=== PATIENT | female | born 1950 | race Caucasian/White ===

== ENCOUNTER 2020-04-07 12:46 | Inpatient (IN) | payer BC, OTHER, SELFPAY ==
[~2020-04-07] VITALS: Ht 157.5 cm; Wt 83.0 kg
[2020-04-07 14:28] VITALS: Ht 157.5 cm; Wt 83.0 kg
[2020-04-07 15:19] LABS: BASOPHIL % 0.5 % (0.2-1.3); PLATELET COUNT 378 x10^3mcL (179-408); RED CELL DISTRIBUTION WIDTH 13.1 % (12.3-17.7)
[2020-04-07 15:23] LABS: CALCIUM 9.6 mg/dL (8.5-10.1); CARBON DIOXIDE 25.4 mmol/L (21-32); POTASSIUM SERUM 3.9 mmol/L (3.5-5.1)
[2020-04-07 15:28] LABS: ALBUMIN 3.8 g/dL (3.4-5.0); BILIRUBIN TOTAL 0.9 mg/dL (0.20-1.00); C REACTIVE PROTEIN 3.3 mg/dL (<=0.9); TOTAL PROTEIN, SERUM 7.8 g/dL (6.4-8.2)
[2020-04-07 17:20] LABS: microscopic required? NO
[2020-04-07 17:34] LABS: urine erythrocyte NEGATIVE (NEGATIVE)
[2020-04-07] MEDS ORDERED: JANUVIA100 M1 PO (18:03)
[2020-04-07] MEDS ORDERED: TIROSINT75 MC1 PO (18:05)
[2020-04-07] MEDS ORDERED: LIPOFEN150 MG (18:05)
[2020-04-07] MEDS ORDERED: JARDIANCE10 MG PO (18:05)
[2020-04-07] MEDS ORDERED: SIMVASTATIN5 M2 (18:06)
[2020-04-07] MEDS ORDERED: GLIPIZIDE XL10 M1 PO (18:06)
[2020-04-07] MEDS ORDERED: VALSARTAN320 MG PO (18:07)
[2020-04-07] MEDS ORDERED: FORTAMET1000 MG PO (18:07)
[2020-04-07 18:25] VITALS: BP 110/53
[2020-04-09 04:50] VITALS: BP 145/80
[2020-04-09 05:18] VITALS: BP 145/80
[2020-04-09 09:18] LABS: BASOPHIL % 0.4 % (0.2-1.3); RED CELL DISTRIBUTION WIDTH 12.6 % (12.3-17.7)
[2020-04-09 09:51] LABS: CALCIUM 9.7 mg/dL (8.5-10.1); CARBON DIOXIDE 29.5 mmol/L (21-32); CHLORIDE SERUM 104 mmol/L (98-107); CREATININE SERUM 0.7 mg/dL (0.6-1.0); GFR1 > 60 mL/min; GLUCOSE SERUM 130 mg/dL (74-106); POTASSIUM SERUM 3.6 mmol/L (3.5-5.1); SODIUM SERUM 143 mmol/L (136-145)
[2020-04-09 09:55] LABS: BILIRUBIN DIRECT 0.14 mg/dL (0.0-0.2); BILIRUBIN TOTAL 0.6 mg/dL (0.20-1.00)
[2020-04-09 09:58] LABS: ALBUMIN 3.2 g/dL (3.4-5.0)
[2020-04-09 09:59] VITALS: BP 116/67
[2020-04-09 10:50] LABS: PLATELET COUNT 422 x10^3mcL (179-408)
[2020-04-09 12:03] VITALS: BP 117/54
[2020-04-09 16:42] VITALS: BP 143/84
[2020-04-09 20:32] VITALS: BP 141/83
[2020-04-10 05:09] VITALS: BP 138/80
[2020-04-10 08:03] LABS: CALCIUM 8.9 mg/dL (8.5-10.1); CARBON DIOXIDE 28.4 mmol/L (21-32); CHLORIDE SERUM 107 mmol/L (98-107); CREATININE SERUM 0.7 mg/dL (0.6-1.0); GFR1 > 60 mL/min; GLUCOSE SERUM 81 mg/dL (74-106); POTASSIUM SERUM 3.7 mmol/L (3.5-5.1); SODIUM SERUM 144 mmol/L (136-145)
[2020-04-10 08:17] VITALS: BP 123/78
[2020-04-10 08:37] LABS: BILIRUBIN DIRECT 0.15 mg/dL (0.0-0.2); BILIRUBIN TOTAL 0.63 mg/dL (0.20-1.00); TOTAL PROTEIN, SERUM 6.5 g/dL (6.4-8.2)
[2020-04-10 12:00] VITALS: BP 117/72
[2020-04-10 16:10] VITALS: BP 124/63
[2020-04-10 16:52] LABS: BASOPHIL % 0.5 % (0.2-1.3); RED CELL DISTRIBUTION WIDTH 13.1 % (12.3-17.7)
[2020-04-10 17:03] LABS: PLATELET COUNT 423 x10^3mcL (179-408)
[2020-04-10 21:48] VITALS: BP 116/71
[2020-04-11 06:05] VITALS: BP 134/75
[2020-04-11 07:15] LABS: BASOPHIL % 0.3 % (0.2-1.3); RED CELL DISTRIBUTION WIDTH 12.7 % (12.3-17.7)
[2020-04-11 07:20] LABS: CALCIUM 9.2 mg/dL (8.5-10.1); CARBON DIOXIDE 27.2 mmol/L (21-32); CHLORIDE SERUM 106 mmol/L (98-107); CREATININE SERUM 0.7 mg/dL (0.6-1.0); GFR1 > 60 mL/min; GLUCOSE SERUM 85 mg/dL (74-106); POTASSIUM SERUM 3.5 mmol/L (3.5-5.1); SODIUM SERUM 143 mmol/L (136-145)
[2020-04-11 07:42] LABS: BILIRUBIN DIRECT 0.14 mg/dL (0.0-0.2); BILIRUBIN TOTAL 0.51 mg/dL (0.20-1.00); TOTAL PROTEIN, SERUM 6.2 g/dL (6.4-8.2)
[2020-04-11 07:51] LABS: PLATELET COUNT 411 x10^3mcL (179-408)
[2020-04-11 09:33] VITALS: BP 134/72
[2020-04-11 13:24] VITALS: BP 121/76
[2020-04-11 17:31] VITALS: BP 107/67
[2020-04-11 21:07] VITALS: BP 115/67
[2020-04-12 05:25] VITALS: BP 133/68
[2020-04-12 07:54] LABS: BASOPHIL % 0.5 % (0.2-1.3); RED CELL DISTRIBUTION WIDTH 12.7 % (12.3-17.7)
[2020-04-12 08:12] LABS: PLATELET COUNT 431 x10^3mcL (179-408)
[2020-04-12 08:19] LABS: CALCIUM 9.3 mg/dL (8.5-10.1); CARBON DIOXIDE 27.8 mmol/L (21-32); CHLORIDE SERUM 109 mmol/L (98-107); CREATININE SERUM 0.8 mg/dL (0.6-1.0); GFR1 > 60 mL/min; GLUCOSE SERUM 75 mg/dL (74-106); POTASSIUM SERUM 3.9 mmol/L (3.5-5.1); SODIUM SERUM 144 mmol/L (136-145)
[2020-04-12 08:29] LABS: BILIRUBIN DIRECT 0.17 mg/dL (0.0-0.2); BILIRUBIN TOTAL 0.5 mg/dL (0.20-1.00)
[2020-04-12 08:35] VITALS: BP 129/69
[2020-04-12 09:00] LABS: ALBUMIN 2.9 g/dL (3.4-5.0)
[2020-04-12 11:56] VITALS: BP 131/74
[2020-04-12 17:20] VITALS: BP 112/70
[2020-04-12 20:55] VITALS: BP 102/55
[2020-04-13 05:27] VITALS: BP 137/79
[2020-04-13 08:30] LABS: BASOPHIL % 0.8 % (0.2-1.3); PLATELET COUNT 393 x10^3mcL (179-408)
[2020-04-13 08:35] VITALS: BP 123/63
[2020-04-13 08:53] LABS: CALCIUM 9.2 mg/dL (8.5-10.1); CARBON DIOXIDE 25.2 mmol/L (21-32); CHLORIDE SERUM 109 mmol/L (98-107); CREATININE SERUM 0.6 mg/dL (0.6-1.0); GFR1 > 60 mL/min; GLUCOSE SERUM 88 mg/dL (74-106); POTASSIUM SERUM 3.4 mmol/L (3.5-5.1); SODIUM SERUM 143 mmol/L (136-145)
[2020-04-13 12:52] VITALS: BP 116/62
[2020-04-13 17:05] VITALS: BP 127/73
[2020-04-13 20:50] VITALS: BP 122/73
[2020-04-13 21:31] VITALS: BP 122/73
== END 2020-04-13 21:54 | disposition home or self-care (01) | DRG 177 ==
LOC: ED 12:46 → DU 17:44
PROVIDERS: Emergency Medicine; ADMIT Internal Medicine; ATTEND Internal Medicine
PROC: XW033E5 Introduction of Remdesivir Anti-infective into Peripheral Vein, Percutaneous Approach, New Technology Group 5 (ICD-10-PCS; principal; 2020-04-08)
DX: U07.1 COVID-19 (principal); J12.89 Other viral pneumonia; J96.01 Acute respiratory failure with hypoxia; I10 Essential (primary) hypertension; E78.5 Hyperlipidemia, unspecified; E11.9 Type 2 diabetes mellitus without complications; E78.00 Pure hypercholesterolemia, unspecified; I25.10 Atherosclerotic heart disease of native coronary artery without angina pectoris; E03.9 Hypothyroidism, unspecified; Z79.899 Other long term (current) drug therapy; Z88.5 Allergy status to narcotic agent; Z90.89 Acquired absence of other organs; Z90.49 Acquired absence of other specified parts of digestive tract; Z88.6 Allergy status to analgesic agent
CPT/HCPCS: 36600; 82962; 83880; 85378; 87804; G0378; J0456; J0696; J1100; J1650; J2270; J3535; J7040; J7060; U0003